=== PATIENT | female | born 1990 | race Caucasian/White ===

== ENCOUNTER 2016-07-26 13:27 | Inpatient (IN) ==
--- NOTE | 2016-07-26 11:28 | OB/GYN History & Physical ---
Date of Encounter: 07/26/16 Time of Encounter: 11:27 Assessment and Plan (1) with 37 weeks completed gestation Current visit: Yes Status: Acute 37w 2d No contractions noted. Routing expectant management. Workup pending for elevated bile acids and HTN. (2) Total bilirubin, elevated Current visit: Yes Status: Acute Asymptomatic hyperbilirubinemia. Patient denies pruritis. Mother does not note any yellowing of skin. No hx EtOH or illicit substance use. No hx liver disease. No observable jaundice or slceral icteris. Bile acid 07/23: 32 Patient was hypertensive on evaluation: 130/103. No hx hypertension or PIH. Will repeat serum bile acid and draw PIH labs. May consider induction. History of Present Illness Chief complaint: possible cholestasis, labor eval HPI: Ms. Winn is a 25 year old female presents from home with concerns regarding possible cholestasis and labor evaluation. 37w 2d Patient and her mother knew they were here for abnormal labs. She denies contractions. No vaginal bleeding or fluid discharge. I spent time to discuss at length her elevated labs, our serum workup, and possible decisions that may need to be made including discharge home or induction of labor. I reassured the patient and mother we would be updating them on results and involving them in the process through shared decision making. Neither mother nor patient had any questions at this time. complications: none previously. OB: Dr. Schulz Blood type: A- GBS: (-) HbSAg: (-) Rubella: (+) VZV: (+) T. Pallidum: (-) HIV: (-) CF: (-) Past Med Surg Social Fam HX - Past Medical History Source: patient, obtained from family Medical history: no medical history - Family History Mother History Unknown: Yes Obstetrical History - Pregnancies : 1 Para: 0 Term: 0 : 0 Ab's: 0 Livin Review of System OB All systems PM: reviewed and no additional remarkable complaints except as stated - Constitutional Constitutional ROS IM: no fatigue, no fever(s), no headache(s), no lethargy, no weakness - Nose, mouth, and throat Nose, mouth and throat: nasal congestion, no dizziness, no facial pain, no headache(s), no post-nasal drip, no sinus pain, no sinus pressure, no sore throat - Cardiovascular Cardiovascular: no chest pain, no dyspnea, no lightheadedness, no palpitations - Respiratory Respiratory: no cough, no dyspnea, no wheezing - Gastrointestinal Gastrointestinal: no abdominal pain, no bloating, no change in bowel habits, no change in stool character, no constipation, no cramping, no diarrhea, no dyspepsia, no dysphagia, no heartburn, no hematemesis, no hematochezia, no nausea, no vomiting - Genitourinary Genitourinary: no difficulty urinating, no dysuria, no vaginal discharge - Integumentary Integumentary: no pruritus, no rash, no swelling - Neurological Nerological: no disequilibrium, no dizziness, no loss of vision, no sensory deficit, no other visual disturbances Exam - Constitutional Constitutional: well developed, well nourished, no acute distress, average body habitus - HEENT HEENT: Normocephaly, Mucus Membranes Moist, Other (No scleral icteris, No sublingual jaundice, No obvious skin jaundice.) - Neck Neck exam: normal inspection - Lungs Respiratory exam: CTAB - Cardiovascular Cardiovascular exam: RRR, +S1, +S2 - Abdomen Abdomen: Present: bowel sounds normal, gravid, non tender. Absent: guarding noted - Extremities Extremities exam: normal capillary refill, normal inspection, warm, radial pulses palpable and symetrical Results Result Diagrams: 07/26/16 11:59 07/26/16 11:59 All other labs normal. - Attending Attestation I examined this patient and my medical decision-making was reviewed with the POWER DIGGER OPERATOR/PA/Advanced Practice Nurse/Resident Physician. I agree with the documented findings, disposition and treatment plan as described except to the extent set forth below.
[2016-07-26 12:14] LABS: Basophils % 0.3 %; Eosinophils # 0.1 K/mcL (0.0-0.6); Eosinophils % 0.7 %; Hematocrit 36.9 % (35.3-44.9); Hemoglobin 12.9 g/dL (11.5-15.4); Immature Granulocytes % 0.5 % (0-4); Lymphocytes # 1.9 K/mcL (0.6-4.6); Lymphocytes % 14.8 %; Mean Corpuscular Hemoglobin 28.1 pg (28.0-33.3); Mean Corpuscular Volume 80.4 fL (83.0-100.0); Mean Platelet Volume 11.9 fL (9.4-12.4); Monocytes # 0.6 K/mcL (0.0-1.3); Monocytes % 4.3 %; Neutrophils # 10.2 K/mcL (1.6-8.9); Platelet Count 212 K/mcL (140-400); Red Blood Count 4.59 M/mcL (3.82-4.97); Segmented Neutrophils % 79.4 %
[2016-07-26 12:26] LABS: Alanine Aminotransferase 28 Units/L (0-55); Aspartate Amino Transferase 25 Units/L (5-34); BUN/Creatinine Ratio 11 (6-26); Blood Urea Nitrogen 8 mg/dL (7-20); Lactate Dehydrogenase 270 Units/L (159-327); Uric Acid 7.4 mg/dL (2.6-6.0); eGFR For African Americans > 60 (> 60); eGFR For Non-African Americans > 60 (> 60)
[~2016-07-26 13:27] MED LIST: Famotidine 20 MG/2 ML VIAL IVP PRN; Naloxone 0.4 MG/ML INJ IVP PRN; Ondansetron 4 MG/2 ML VIAL IVP PRN
[2016-07-26] MEDS ORDERED: miSOPROStol 25 MCG TABLET VG PRN (13:31)
--- NOTE | 2016-07-26 15:12 | OB Labor Progress Note ---
Date of Encounter: 07/26/16 Time of Encounter: 15:10 Labor Progress Note - Subjective Subjective: Pt with minimal discomfort at this time. - Cervix Cervix: 1/80/-1 - Heart Tones Heart Tones: Category I - [place]: irregular and mild - Interventions Interventions: Suazo placed in cervix using sterile technique. Balloon inflated with 30ml sterile water. Pt tolerated well. - Plan Plan: Continue to monitor. Cytotec 50mcg PO. AROM when suazo out. Epidural when requested. Anticipate .
[2016-07-26] MEDS ORDERED: miSOPROStol 100 MCG TABLET PO SCH ×2 (16:00→17:00)
--- NOTE | 2016-07-26 20:01 | OB Labor Progress Note ---
Date of Encounter: 07/26/16 Time of Encounter: 19:59 Labor Progress Note - Subjective Subjective: Pt reports pain 8/10 with contractions. - Cervix Cervix: 3/80/0 - Heart Tones Heart Tones: Category I - [place]: irregular - Interventions Interventions: AROM for moderate amount clear fluid - Plan Plan: Continue to monitor. Epidural when requested. Will augment with pitocin as needed.
[2016-07-26] MEDS ORDERED: *HR* Nalbuphine 20 MG/ML AMPUL IVP PRN (20:14)
--- NOTE | 2016-07-26 21:03 | Anesthesia Evaluation PreOp ---
Date of Encounter: 07/26/16 Time of Encounter: 21:00 - Past History Planned Operation: labor epidural Cardiac History: Denies any Significant Hx Pulmonary History: Former smoker (1ppd for 6 years. quit when became .) MARKETING EDITOR History: Denies Any Significant HX Other Medical History: Denies Any Significant HX Anesthesia History: Past Anesthesia (never had anesthesia. Patient is adopted.) : Yes Medications and Allergies Tablet 1 tab PO DAILY 07/26/16 [History] Allergies No Known Allergies Allergy (Verified 07/26/16 15:16) - Meds/Allergy Pre-op Review Medications Reviewed: Yes Allergies Reviewed: Yes Beta Blockers on Current Med List: No Anesthesia Results - Labs 07/26/16 11:59 07/26/16 11:59 Anesthesia Exam 149/81, 89, 16, 98%. Height: 2'2" Weight: 83Kg NPO (# of Hours): 1330 Pain Scale: 8 Pain Scale Used: Numeric (1 - 10) - HEENT Pupil (Motor): Pupils equal Mallampati: II Teeth: Normal Oral Opening: Greater than 3 - MARKETING EDITOR LOC: Oriented MARKETING EDITOR Motor: Normal RUE, Normal LUE, Normal RLE, Normal LLE, Normal Face MARKETING EDITOR Sensory: Normal: RUE, LUE, RLE, LLE, Face - Cardiac Rhythm: Regular - Pulmonary Breath Sounds: bilateral Clear Respiratory Effort: Symmetrical Anesthesia Assess/Plan ASA Score: 2 Modified Mikal Scale for Level of Consciousness: Cooperative, oriented, and tranquil Anesthetic Plan: Regional Monitoring Plan: Standard Monitors
[2016-07-26] MEDS ORDERED: Bupivacaine-MPF 0.25% 10 ML VIAL EP ONE (21:06)
[2016-07-26] MEDS ORDERED: *HR* FentaNYL (PF) 100 MCG/2 ML VIAL EP ONE (21:06)
[2016-07-26] MEDS ORDERED: Epidural Premix (fent/bupiv) 110 ML EP SCH (21:15)
[2016-07-26] MEDS: Ringers Solution, Lactated 1,000 ML IVC SCH (21:46)
[2016-07-27] MEDS: Oxytocin 20 units/ LR 1000 mL 20 UNIT/1,000 ML BAG IVC SCH (00:17)
[2016-07-27] MEDS ORDERED: *HR* FentaNYL (PF) 100 MCG/2 ML VIAL ONE (00:24)
[2016-07-27] MEDS: Ringers Solution, Lactated 1,000 ML IVC SCH ×4 (00:27→19:56)
[2016-07-27] MEDS ORDERED: Bupivacaine-MPF 0.25% 10 ML VIAL ONE (00:29)
[2016-07-27] MEDS ORDERED: Epidural Premix (fent/bupiv) 110 ML EP ONE ×4 (01:04→22:19)
--- NOTE | 2016-07-27 01:14 | Anesthesia Procedures ---
Date of Encounter: 07/27/16 Time of Encounter: 00:32 Procedures: Anesthesia - Epidural/Spinal Patient ID/Chart reviewed: Yes Patient examined: Yes OB Eval: Gestational age: 37 OB Eval: : 1 OB Eval: Hx Para: 0 OB Eval: Dilated at (cm): 3 OB Eval: Contractions: Non-stressed pattern Consent Obtained: Yes Supplemental Oxygen: None/Room Air Site Prep: Aseptic Technique, Sterile prep and drape, Povidone-Iodine 1% Patient position: upright Local Anesthetic: Lidocaine 1% Amount of Local Anesthetic used: 5 Touhy Needle Gauge: 18 Touhy Needle Depth (cm): 6 Catheter Depth at Skin (cm): 15 Test Dose (1.5% Lido + Epi): Volume given (mls): 3 Test Dose Result: Negative Loading Dose: 0.25% Marcaine (mls): 8 Loading Dose: Fentanyl (mcg): 100 Loading Dose Administered: Thru Catheter Infusion Med: 0.125% Bupivacaine w/ 2 mcg/ml Fentanyl Infusion Rate (mls/hr): [address]: Tegaderm, Tape Interspace Used: L2-L3 Loss of Resistance ([place]ILLARY): Yes Blood: No CSF: No Paresthesia: No Vitals + FHT's: 3 Vital Signs Time 0035 0040 0045 0050 0055 0100 0105 BP 171/69 170/77 164/70 159/89 152/69 138/65 126/57 Pulse 81 78 70 75 76 8178 81 FHTs 130 130 130 130 130 [id number] 130
[2016-07-27] MEDS ORDERED: *HR* Ropivacaine/PF 0.2% 10 ML AMPUL ONE ×2 (15:53→20:37)
[2016-07-27] MEDS ORDERED: Ampicillin 2 GM in 0.9 % Sodium Chloride Mini Bag 100 ML IVPB ONE (19:22)
--- NOTE | 2016-07-27 19:35 | OB Labor Progress Note ---
Date of Encounter: 07/27/16 Time of Encounter: 19:34 Labor Progress Note - Subjective Subjective: Pt comfortable with epidural - Vital Signs Vital Signs: temp 99.9 - Cervix Cervix: 8/100/-1 - Heart Tones Heart Tones: 165 with btbv, + scalp stim - Nada Nada: uc's q 2 hr - Interventions Interventions: Will start Ampicllin and start Tylenol - Plan Plan: Will cont. to watch labor progress
[2016-07-27] MEDS ORDERED: SODIUM CHLORIDE MINI 0.9% IVPB SCH (20:00)
[2016-07-27] MEDS ORDERED: AMPICILLIN IVPB SCH (20:00)
[2016-07-27] MEDS: Acetaminophen 325 MG TABLET PO SCH (20:17)
--- NOTE | 2016-07-27 20:45 | Anesthesia Progress Note ---
Date of Encounter: 07/27/16 Time of Encounter: 20:44 Anesthesia Note - Note Note: 07/27/16 20:44 Called to room for labor pain 10 out of 10. Catheter site dry and intact. No catheter migration. Bolus with 0.2% ropivicaine 10 ml.
[2016-07-27] MEDS ORDERED: Lidocaine 1% 20 ML MDV ONE (23:53)
--- NOTE | 2016-07-28 00:16 | OB/GYN Procedure Note ---
Delivery - Delivery Date: 07/27/16 Provider: Nick Amezquita Intrapartum events: febrile- temp >100.3 Delivery induction: misoprostol Delivery augmentation: rupture of membranes, pitocin Delivery monitor: external FHT, internal uterine Anesthesia: local, epidural Estimated Blood Loss: 250 - (s) A Delivery Date: 07/27/16 Delivery Time: 23:46 Presentation: vertex Position: CINDI Route of delivery: Gender: Male Viability: Viable Pounds: 6 Ounces: 5 at 1 minute: 2 at 5 mins: 7 Shoulder Dystocia: not encountered Placenta: spontaneous Cord: 3 umbilical vessels, nuchal cut - Repair Episiotomy: none Laceration Description: Perineal - 3rd Degree - Complications Delivery complications: none - Disposition Mom disposition: stable in LDR disposition: stable in LDR (Pt s/p of liveborn male . After deliver of head tight nuchal was noted and was double clamped and cut prior to delivery of shoulders. Partial 3rd degree laceration repaired with 2-0 and 3- 0 vicryl. Normal placenta with 3 vc noted.)
[2016-07-28] MEDS ORDERED: Lanolin 28 GM TUBE TP PRN (00:19)
[2016-07-28] MEDS ORDERED: Benzocaine/Menthol 56 GM AEROSOL SPRAY TP PRN ×2 (00:19→02:14)
[2016-07-28] MEDS ORDERED: Lanolin 7 G OINT...G. TP PRN (00:42)
[2016-07-28] MEDS: Oxytocin 20 units/ LR 1000 mL 20 UNIT/1,000 ML BAG IVC SCH (01:44)
[2016-07-28] MEDS: Acetaminophen 325 MG TABLET PO SCH (01:45)
[2016-07-28] MEDS ORDERED: Oxytocin 20 units/ LR 1000 mL 20 UNIT/1,000 ML BAG IVC SCH (02:14)
[2016-07-28 07:07] LABS: Eosinophils % 0.1 %; Lymphocytes % 5.4 %
[2016-07-28 07:09] LABS: Basophils % 0.1 %; Hematocrit 32.2 % (35.3-44.9); Hemoglobin 11.1 g/dL (11.5-15.4); Immature Granulocytes % 1.1 % (0-4); Lymphocytes # 1.5 K/mcL (0.6-4.6); Mean Corpuscular HGB Conc 34.5 g/dL (31.6-35.5); Mean Corpuscular Volume 81.3 fL (83.0-100.0); Mean Platelet Volume 11.9 fL (9.4-12.4); Monocytes # 1.5 K/mcL (0.0-1.3); Monocytes % 5.7 %; Neutrophils # 23.5 K/mcL (1.6-8.9); Platelet Count 169 K/mcL (140-400); Red Blood Count 3.96 M/mcL (3.82-4.97); Red Cell Distribution Width 13.8 % (11.5-14.5); Segmented Neutrophils % 87.6 %
--- NOTE | 2016-07-28 07:19 | OB/GYN Progress Note ---
Date of Encounter: 07/28/16 Time of Encounter: 07:16 - Assessment and Plan (1) Vaginal delivery Current Visit: Yes Status: Acute Pt doing well, no complaints at this time. Will plan on discharge tomorrow. (2) Cholestasis during in third trimester Current Visit: Yes Status: Acute Subjective - Subjective Interval history: Pt states feels well, cramping is well managed on po pain medication. Pt states voiding without difficulty. Patient reports: appetite normal [place]: doing well Objective - Latest Vital Signs Latest vital signs: Vital Signs Temp Pulse Resp BP Pulse Ox 07/28/16 04:00 98.2 F 80 97 119/73 07/28/16 03:00 97.9 F 77 16 131/78 97 07/28/16 02:25 98.3 F 87 12 127/78 97 Intake and Output 07/27/16 07/27/16 07/28/16 15:59 23:59 07:59 Intake Total 3000 / 3000 800 / 800 Output Total 1700 / 1700 Balance 3000 / 3000 -900 / -900 Intake: IV Fluids 3000 / 3000 Pitocin 20 unit In 1,000 1000 / 1000 ml @ Titrate IVC .Q0M FITZ Rx#:[id number] Lactated Ringers 1,000 ML 2000 / 2000 @ 125 mls/hr IVC .Q8H FITZ Rx#:[id number] Oral 200 / 200 Other 600 / 600 Output: Urine 1700 / 1700 Other: Weight 82.6 kg Patient Weight 07/28/16 23:59 Weight 82.6 kg - Exam Lungs: bilateral: normal Chest: Normal S1, Normal S2 Abdomen: Present: normal appearance, soft Uterus: Present: normal, firm - Labs Labs: Laboratory Results - last 24 hr 07/26/16 07/28/16 11:59 06:13 WBC 26.8 H D RBC 3.96 Hgb 11.1 L D Hct 32.2 L MCV 81.3 L MCH 28.0 MCHC 34.5 RDW 13.8 Plt Count 169 MPV 11.9 Total Bile Acids 4
[2016-07-28 07:26] LABS: Platelet Estimate Normal (Normal)
[2016-07-28] MEDS: Prenatal Vit/FA 1 EACH TABLET PO SCH (07:48)
--- NOTE | 2016-07-28 09:59 | OB/GYN Progress Note ---
Date of Encounter: 07/28/16 Time of Encounter: 09:57 - Assessment and Plan (1) with 37 weeks completed gestation Current Visit: Yes Status: Acute 37w 2d No contractions noted. Routing expectant management. Workup pending for elevated bile acids and HTN. (2) Total bilirubin, elevated Current Visit: Yes Status: Acute Asymptomatic hyperbilirubinemia. Patient denies pruritis. Mother does not note any yellowing of skin. No hx EtOH or illicit substance use. No hx liver disease. No observable jaundice or slceral icteris. Bile acid 07/23: 32 Patient was hypertensive on evaluation: 130/103. No hx hypertension or PIH. Will repeat serum bile acid and draw PIH labs. May consider induction. (3) Neutrophilic leukocytosis Current Visit: Yes Status: Acute (4) Vaginal delivery Current Visit: Yes Status: Acute Repeat CBC in a.m. for monitoring, patient currently stable and afebrile Subjective - Subjective Principal diagnosis: PPD1 Patient reports: appetite normal, voiding normally, pain well controlled, ambulating normally : doing well Objective - Latest Vital Signs Latest vital signs: Vital Signs Temp Pulse Pulse Resp BP Pulse Ox 07/28/16 07:55 97.8 F 80 80 16 133/89 07/28/16 04:00 98.2 F 80 97 119/73 07/28/16 03:00 97.9 F 77 16 131/78 97 07/28/16 02:25 98.3 F 87 12 127/78 97 Intake and Output 07/27/16 07/28/16 07/28/16 23:59 07:59 15:59 Intake Total 3000 / 3000 800 / 800 Output Total 1700 / 1700 Balance 3000 / 3000 -900 / -900 Intake: IV Fluids 3000 / 3000 Pitocin 20 unit In 1,000 1000 / 1000 ml @ Titrate IVC .Q0M FITZ Rx#:[id number] Lactated Ringers 1,000 ML 2000 / 2000 @ 125 mls/hr IVC .Q8H FITZ Rx#:[id number] Oral 200 / 200 Other 600 / 600 Output: Urine 1700 / 1700 Other: Weight 82.6 kg Patient Weight 07/28/16 23:59 Weight 82.6 kg - Exam Extremities: Present: normal, edema (minimal PTE). Absent: tenderness Abdomen: Present: normal appearance, soft. Absent: tenderness Uterus: Present: normal, firm. Absent: tenderness Uterus Position: 2 Fingers Below Umbilicus, Midline - Labs Labs: Laboratory Results - last 24 hr 07/26/16 07/28/16 11:59 06:13 WBC 26.8 H D RBC 3.96 Hgb 11.1 L D Hct 32.2 L MCV 81.3 L MCH 28.0 MCHC 34.5 RDW 13.8 Plt Count 169 MPV 11.9 Immature Gran % 1.1 Seg Neutrophils % 87.6 Lymphocytes % 5.4 Monocytes % 5.7 Eosinophils % 0.1 Basophils % 0.1 Neutrophils # 23.5 H Lymphocytes # 1.5 Monocytes # 1.5 H Eosinophils # 0.0 Basophils # 0.0 Platelet Estimate Normal Total Bile Acids 4 - Allied health notes Allied health notes reviewed: nursing
[2016-07-28] MEDS: Acetaminophen 325 MG TABLET PO PRN (20:57)
[2016-07-29 05:06] LABS: Basophils # 0.1 K/mcL (0.0-0.2); Basophils % 0.3 %; Eosinophils # 0.4 K/mcL (0.0-0.6); Eosinophils % 2.9 %; Hematocrit 32.2 % (35.3-44.9); Hemoglobin 10.8 g/dL (11.5-15.4); Immature Granulocytes % 0.7 % (0-4); Lymphocytes # 2.4 K/mcL (0.6-4.6); Lymphocytes % 16.1 %; Mean Corpuscular HGB Conc 33.5 g/dL (31.6-35.5); Mean Corpuscular Hemoglobin 27.6 pg (28.0-33.3); Mean Corpuscular Volume 82.1 fL (83.0-100.0); Mean Platelet Volume 11.3 fL (9.4-12.4); Monocytes # 0.7 K/mcL (0.0-1.3); Neutrophils # 11.2 K/mcL (1.6-8.9); Platelet Count 160 K/mcL (140-400); Red Blood Count 3.92 M/mcL (3.82-4.97); Red Cell Distribution Width 13.8 % (11.5-14.5)
[2016-07-29] MEDS ORDERED: Rho Immune Globulin 1,500 UNIT SYRINGE IM ONE (07:11)
[2016-07-29 08:20] VITALS: BP 119/71
--- NOTE | 2016-07-29 08:30 | Discharge Summary ---
Date of Encounter: 07/29/16 Time of Encounter: 08:27 - Discharge Diagnosis (1) Vaginal delivery Priority: Primary Status: Acute Comments: Pt meeting milestones. (2) Mother currently breast-feeding Priority: Secondary Status: Acute Comments: Rx breastpump - Discharge Medications Prescriptions: Ibuprofen [Motrin] 600 mg PO Q6HR PRN #60 tab PRN Reason: Pain Breast Pump [BREAST PUMP] 1 each .ROUTE AD #1 each Docusate [Colace] 100 mg PO BID #60 capsule Home Medications: Tablet 1 tab PO DAILY 07/26/16 [History] Benzocaine/Menthol [place] [Dermoplast [place]] 1 appl TP QID PRN #0 aerosol [Rx] Breast Pump [BREAST PUMP] 1 each .ROUTE AD #1 each 07/29/16 [Rx] Docusate [Colace] 100 mg PO BID #60 capsule 07/29/16 [Rx] Ibuprofen [Motrin] 600 mg PO Q6HR PRN #60 tab 07/29/16 [Rx] Allergies/Adverse Reactions: Allergies No Known Allergies Allergy (Verified 07/26/16 15:16) Data Procedures and tests throughout hospitalization: Laboratory Tests 07/26/16 07/26/16 07/26/16 11:59 11:59 11:59 WBC 12.8 H RBC 4.59 Hgb 12.9 Hct 36.9 MCV 80.4 L MCH 28.1 MCHC 35.0 RDW 14.0 Plt Count 212 MPV 11.9 Immature Gran % 0.5 Seg Neutrophils % 79.4 Lymphocytes % 14.8 Monocytes % 4.3 Eosinophils % 0.7 Basophils % 0.3 Neutrophils # 10.2 H Lymphocytes # 1.9 Monocytes # 0.6 Eosinophils # 0.1 Basophils # 0.0 Platelet Estimate Immature Plt Fraction BUN 8 Creatinine 0.76 Est GFR ( Amer) > 60 Est GFR (Non-Af Amer) > 60 BUN/Creatinine Ratio 11 Uric Acid 7.4 H AST 25 ALT 28 Lactate Dehydrogenase 270 Total Bile Acids 4 07/28/16 07/29/16 06:13 04:57 WBC 26.8 H D 14.9 H RBC 3.96 3.92 Hgb 11.1 L D 10.8 L Hct 32.2 L 32.2 L MCV 81.3 L 82.1 L MCH 28.0 27.6 L MCHC 34.5 33.5 RDW 13.8 13.8 Plt Count 169 160 MPV 11.9 11.3 Immature Gran % 1.1 0.7 Seg Neutrophils % 87.6 75.0 Lymphocytes % 5.4 16.1 Monocytes % 5.7 5.0 Eosinophils % 0.1 2.9 Basophils % 0.1 0.3 Neutrophils # 23.5 H 11.2 H Lymphocytes # 1.5 2.4 Monocytes # 1.5 H 0.7 Eosinophils # 0.0 0.4 Basophils # 0.0 0.1 Platelet Estimate Normal Immature Plt Fraction 8.0 H BUN Creatinine Est GFR ( Amer) Est GFR (Non-Af Amer) BUN/Creatinine Ratio Uric Acid AST ALT Lactate Dehydrogenase Total Bile Acids Labs on day of discharge: Labs from last 24 hours 07/29/16 04:57 WBC 14.9 H RBC 3.92 Hgb 10.8 L Hct 32.2 L MCV 82.1 L MCH 27.6 L MCHC 33.5 RDW 13.8 Plt Count 160 MPV 11.3 Immature Gran % 0.7 Seg Neutrophils % 75.0 Lymphocytes % 16.1 Monocytes % 5.0 Eosinophils % 2.9 Basophils % 0.3 Neutrophils # 11.2 H Lymphocytes # 2.4 Monocytes # 0.7 Eosinophils # 0.4 Basophils # 0.1 Immature Plt Fraction 8.0 H Date of admission: 07/26/16 13:27 Primary care physician: Robert White CNP Consults: 07/28/16 02:14 Consult to Overnight Stocker [CONS] Routine Comment: Vaginal delivery, consult needed Discharging clinician: Marah Anderson Anticipated date of discharge: 07/29/16 - Patient Status Disposition: Home, Self-Care Condition: Good Functional capacity at discharge: independent ambulation Overall status at discharge: patient is progressing back to baseline - Discharge Instructions Follow Up With: Robert White CNP [Primary Care Provider] - Pierce Schulz DO [Partnered Physician] - - Diet and Activity Activity: increase activity as tolerated Diet: advance to your usual diet Hospital Course Reason for admission: induction of labor Delivery: Episiotomy: none Laceration: 3rd degree Other procedures: none complications: none Discharge diagnosis: IUP at term delivered [place] baby: male Hospital course: - Delivery Date: 07/27/16 Provider: Nick Amezquita Intrapartum events: febrile- temp >100.3 Delivery induction: misoprostol Delivery augmentation: rupture of membranes, pitocin Delivery monitor: external FHT, internal uterine Anesthesia: local, epidural Estimated Blood Loss: 250 - (s) A Infant Delivery Date: 07/27/16 Delivery Time: 23:46 Presentation: vertex Position: CINDI Route of delivery: Gender: Male Viability: Viable Pounds: 6 Ounces: 5 at 1 minute: 2 at 5 mins: 7 Shoulder Dystocia: not encountered Placenta: spontaneous Cord: 3 umbilical vessels, nuchal cut - Repair Episiotomy: none Laceration Description: Perineal - 3rd Degree - Complications Delivery complications: none - Disposition Mom disposition: discharge home PPD#2 [place] disposition: home with mother Time Attestation: Total time spent providing and/or coordinating discharge services: Time Spent: Less than 30 minutes Exam - Constitutional Vitals: Temp Pulse Resp BP Pulse Ox 97.8 F 63 14 119/71 99 07/29/16 08:19 07/29/16 08:19 07/29/16 08:19 07/29/16 08:19 07/29/16 08:19 General appearance IM: A&O X 3, pleasant, no acute distress - Respiratory Respiratory exam: Present: CTAB - Cardiovascular Cardiovascular exam IM: Present: RRR, +S1, +S2 - GI/Abdominal GI/Abdominal exam IM: soft - Rectal Rectal exam: deferred - External exam: normal external exam Uterine Tone: Firm Uterus Position: 2 Fingers Below Umbilicus - Extremities Exam Extremities exam IM: Present: normal inspection, pedal edema (mild bilaterally) - Neurological Exam Neurological exam: normal gait, oriented X3 - Psychiatric Additional comments: reports good mood
[2016-07-29] MEDS: Prenatal Vit/FA 1 EACH TABLET PO SCH (08:32)
[2016-07-29] MEDS: Acetaminophen 325 MG TABLET PO PRN (11:07)
== END 2016-07-29 14:00 | disposition home or self-care (01) | DRG 542 ==
LOC: 1NENULAB → 1NENUOBS 07-28 02:09
PROVIDERS: ADMIT Obstetrics & Gynecology; ATTEND Obstetrics & Gynecology